=== PATIENT | female | born 1990 | race Caucasian/White ===

== ENCOUNTER 2020-06-09 10:31 | Emergency (ER) | payer OTHER ==
[~2020-06-09] VITALS: Ht 160 cm; Wt 75.7 kg
--- NOTE | 2020-06-09 10:41 | NUR ---
ED Nurse Note: Pt ambulated to ED from home d/t bodyache, chills, headache and runny nose that started 3 days ago. Pt is AOx4, calm and cooperative to care, VSS, 96% on RA, 98.6 temp at triage. Pt stated she was tested (-) for covid last week. Placed on room, door kept closed at all times.
[2020-06-09 10:44] VITALS: BP 132/91
[2020-06-09] MEDS ORDERED: TYLENOL EXTRA500 MG ORAL (11:00)
[2020-06-09 11:05] VITALS: BP 128/90
--- NOTE | 2020-06-09 11:05 | NUR ---
ER DISCHARGE NOTE: Patient is cleared to be discharged per ERMD, pt is aox4, on room air, with stable vital signs. pt was given dc and prescription instructions, pt was able to verbalize understanding, pt id band removed. pt is able to ambulate with steady gait. pt took all belongings.
--- NOTE | 2020-06-10 07:28 | Emergency Room Report ---
History of Present Illness General Chief Complaint: Flu Like Symptoms Source: Patient Present Illness HPI 29-year-old female presents presents ED for generalized body aches chills. Started 3 days ago after receiving flu shot. Has not received a flu shot in several years. Pain is dull, 6 out of 10, nonradiating. Denies sore throat or cough. Afebrile in triage. No other aggravating relieving factors. 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: Yes COVID-19 Screening: Negative COVID-19 COVID-19 Testing Source: 1 week ago Patient History Past Medical History: none Past Surgical History: none Pertinent Family History: none Social History: Denies: smoking, alcohol use, drug use Last Menstrual Period: 05/08/20 Now: No - depo shot Immunizations: UTD Reviewed Nursing Documentation: PMH: Agreed; PSxH: Agreed Nursing Documentation-PMH Past Medical History: No History, Except For Review of Systems All Other Systems: negative except mentioned in HPI Physical Exam Vital Signs Date Time Temp Pulse Resp B/P (MAP) Pulse Ox O2 Delivery O2 Flow Rate FiO2 06/09/20 10:34 98.6 64 16 132/91 (105) 96 Room Air Sp02 EP Interpretation: reviewed, normal General Appearance: no apparent distress, alert, GCS 15, non-toxic Head: normocephalic, atraumatic Eyes: bilateral eye normal inspection, bilateral eye PERRL ENT: hearing grossly normal, normal pharynx, no angioedema, normal voice Neck: full range of motion, supple/symm/no masses Respiratory: chest non-tender, lungs clear, normal breath sounds, speaking full sentences Cardiovascular #1: regular rate, rhythm, no edema Cardiovascular #2: 2+ carotid (R), 2+ carotid (L), 2+ radial (R), 2+ radial (L), 2+ dorsalis pedis (R), 2+ dorsalis pedis (L) Gastrointestinal: normal bowel sounds, non tender, soft, non-distended, no guarding, no rebound Rectal: deferred Genitourinary: normal inspection, no CVA tenderness Musculoskeletal: back normal, normal range of motion, gait/station normal, non- tender Neurologic: alert, motor strength/tone normal, oriented x3, sensory intact, responsive, speech normal Psychiatric: judgement/insight normal, memory normal, mood/affect normal, no suicidal/homicidal ideation Reflexes: 3+ bicep (R), 3+ bicep (L), 3+ tricep (R), 3+ tricep (L), 3+ knee (R), 3+ knee (L) Lymphatic: no adenopathy Medical Decision Making Diagnostic Impression: Primary Impression: Upper respiratory infection Qualified Codes: J06.9 - Acute upper respiratory infection, unspecified ER Course Hospital Course 29-year-old female presents with body aches and chills after receiving flu shot Differential diagnoses include: URI, pharyngitis, otitis media, asthma Clinical course Patient placed on stretcher. After initial history, physical exam reveals a female in no acute distress. Bilateral TM unremarkable. No pharyngeal erythema. No tonsillar exudates. No lymphadenopathy. lungs clear. abdomen soft. I discussed findings with patient. Afebrile, nontoxic-appearing. Viral versus side effect of flu vaccine. Either way course is self-limited. Safe for discharge with close outpatient follow-up. States she has a PMD. Diagnosis - URI Stable and discharged home. Instructed to followup with PMD. Return to ED if symptoms recur or worsen Last Vital Signs Date Time Temp Pulse Resp B/P (MAP) Pulse Ox O2 Delivery O2 Flow Rate FiO2 06/09/20 11:05 98.6 78 18 128/90 99 Room Air Status: improved Disposition: HOME, SELF-CARE Condition: Stable Scripts Acetaminophen* (TYLENOL EXTRA STRENGTH*) 500 Mg Tablet 500 MG ORAL Q8H PRN for Prn Headache/Temp > 101, #30 TAB 0 Refills Prov: Jose Angel Smith MD 06/09/20 Departure Forms: Return to Work Return to Work Date: Jun 12, 2020 Work Restrictions: None Patient Instructions: Influenza Tests Jose Angel Smith MD Jun 10, 2020 07:28
== END 2020-06-09 11:05 | disposition home or self-care (01) ==
LOC: EMR 10:53
DX: J06.9 Acute upper respiratory infection, unspecified (principal)
CPT/HCPCS: 99282